=== PATIENT | female | born 1965 ===

== ENCOUNTER 2018-03-23 18:43 | Emergency (ER) | payer MEDICAID ==
[2018-03-23 19:16] VITALS: PULSE 89
--- NOTE | 2018-03-23 20:21 | ED PDOC ---
Arrival/HPI - General Historian: Patient EM Caveat: Language Barrier - History of Present Illness Time/Duration: > week Symptom Onset: Gradual Symptom Course: Worsening Quality: Aching, Pressure, Throbbing Severity Level: 7 Activities at Onset: Rest, Eating, Sleeping Context: Home <Eduarda Ndiaye - Last Filed: 03/23/18 22:12> <Kahlil Covington - Last Filed: 03/23/18 23:24> - General Chief Complaint: Dental Pain Time Seen by Provider: 03/23/18 20:14 - History of Present Illness Narrative History of Present Illness (Text): 03/23/18 20:14 Pt is a 52 yr old female with PMH of DMII, HTN and Migraine Headaches, who presents to the ED for dental pain s/p dental surgery that was done last month which began 3 days after the procedure. Reports pain that travels up the right side of the face as well as throat pain and swelling causing some difficulty swallowing. Also c/o headache, and left ear pain. Pt reports pain is worse at night along with chills but denies fever, nausea, vomiting, diarrhea, stiffness in the neck back pain. Pt states she can only take Percocet as oxycodone immediate release causes dizziness and Motrin irritates her GERD. Pt is a heavy smoker for many years but is trying to quit. (Eduarda Ndiaye) Past Medical History - Provider Review Nursing Documentation Reviewed: Yes - Travel History Have you recently traveled outside [place] w/in the past 3 mons?: No - Cardiac Hx Cardiac Disorders: Yes Hx Hypertension: Yes - Pulmonary Hx Respiratory Disorders: Yes Hx Asthma: Yes - Neurological Hx Neurological Disorder: Yes Hx Migraine: Yes - HEENT Hx HEENT Disorder: No - Renal Hx Renal Disorder: No - Endocrine/Metabolic Hx Endocrine Disorders: Yes Hx Diabetes Mellitus Type 2: Yes - Hematological/Oncological Hx Blood Disorders: No - Musculoskeletal/Rheumatological Hx Musculoskeletal Disorders: Yes Hx Arthritis: Yes Hx Back Pain: Yes - Gastrointestinal Hx Gastrointestinal Disorders: Yes Hx Gall Bladder Disease: Yes - Genitourinary/Gynecological Hx Genitourinary Disorders: No - Psychiatric Hx Psychophysiologic Disorder: Yes Hx Anxiety: Yes Hx Substance Use: No - Surgical History Hx Cholecystectomy: Yes <Eduarda Ndiaye - Last Filed: 03/23/18 22:12> - Past History Past History: Non-Contributing - Infectious Disease Hx of Infectious Diseases: None <Kahlil Covington - Last Filed: 03/23/18 23:24> Family/Social History - Physician Review Nursing Documentation Reviewed: Yes Family/Social History: Unknown Family HX Smoking Status: Heavy Smoker > 10 Cigarettes Daily Hx Alcohol Use: No Hx Substance Use: No <Eduarda Ndiaye - Last Filed: 03/23/18 22:12> Hx Substance Use Treatment: No <Kahlil Covington - Last Filed: 03/23/18 23:24> Allergies/Home Meds <Eduarda Ndiaye - Last Filed: 03/23/18 22:12> <Kahlil Covington - Last Filed: 03/23/18 23:24> Allergies/Adverse Reactions: Allergies No Known Allergies Allergy (Verified 03/23/18 19:08) Review of Systems - Review of Systems Systems not reviewed;Unavailable: Language Barrier (liberian only) Constitutional: Normal, Fevers Eyes: Normal. absent: Vision Changes ENT: Normal, Sore Throat. absent: Hearing Changes, Sinus Congestion Respiratory: Normal. absent: SOB Cardiovascular: Normal. absent: Chest Pain Gastrointestinal: Normal Genitourinary Female: Normal Musculoskeletal: Normal Skin: Normal Neurological: Normal, Headache. absent: Dizziness, Focal Weakness, Gait Changes Endocrine: Normal Hemo/Lymphatic: Normal Psychiatric: Normal <Eduarda Ndiaye - Last Filed: 03/23/18 22:12> Physical Exam Vital Signs Reviewed: Yes Temperature: Afebrile Blood Pressure: Normal Pulse: Regular Respiratory Rate: Normal Appearance: Positive for: Well-Appearing, Non-Toxic, Comfortable Pain Distress: Moderate Mental Status: Positive for: Alert and Oriented X 3 - Systems Exam Head: Present: Atraumatic, Normocephalic Pupils: Present: PERRL Extroacular Muscles: Present: EOMI Conjunctiva: Present: Normal Mouth: Present: Moist Mucous Membranes Pharnyx: Present: ERYTHEMA. No: EXUDATE, TONSILS ENLARGED, Peritonsilar Swelling, Uvular Deviation, Strider, Soft Palate/Uvular Edema Nose (External): Present: Atraumatic Nose (Internal): Present: Normal Inspection Neck: Present: Normal Range of Motion. No: Meningeal Signs, MIDLINE TENDERNESS , Lymphadenopathy Respiratory/Chest: Present: Clear to Auscultation, Good Air Exchange. No: Respiratory Distress, Accessory Muscle Use Cardiovascular: Present: Regular Rate and Rhythm, Normal S1, S2. No: Murmurs Abdomen: No: Tenderness, Distention, Peritoneal Signs Back: Present: Normal Inspection Upper Extremity: Present: Normal Inspection. No: Cyanosis, Edema Lower Extremity: Present: Normal Inspection. No: Edema Neurological: Present: GCS=15, CN II-XII Intact, Speech Normal Skin: Present: Warm, Dry, Normal Color. No: Rashes Lymphatic: Present: Cervical Adenopathy Psychiatric: Present: Alert, Oriented x 3, Normal Insight, Normal Concentration <Eduarda Ndiaye - Last Filed: 03/23/18 22:12> Vital Signs Temp Pulse Resp BP Pulse Ox 03/23/18 19:09 98.9 F 89 16 111/78 98 Medical Decision Making - Lab Interpretations I have reviewed the lab results: Yes (FS 166) <Eduarda Ndiaye - Last Filed: 03/23/18 22:12> Re-evaluation Time: 23:09 Reassessment Condition: Improving,but remains with symptoms - RAD Interpretation Grit Removal Operator: Radiologist <Kahlil Covington - Last Filed: 03/23/18 23:24> ED Course and Treatment: 03/23/18 20:21 Impression Pt is a 52 yr old female who presents to the ED for dental pain s/p dental surgery that was done last month which began 3 days after the procedure. On exam, there are numerous extraction of canine and molar with sutures in place along with purulent matter. Posterior pharynx erythematous and mallampati score of 2. Cervical LAD tenderness especially on the right side. Working Dx: Dental abscess, facial cellulits, Ludwigs angina, Plan maxillofacial CT Clindamycin percocet lidocaine viscous swish and spit 03/23/18 21:16 Progress note Case endorsed to Dr Covington at 21:20 (Eduarda Ndiaye) I performed the hx and physical exam of the patient and discussed their mgt with the PA. I reviewed the PA's NOTE and agree with the assessment and plan of care. pt is doing well currently NO soft tissue tenderness noted on exam no drooling/stridor, no dysphonia noted poor dentitions noted, with gingival disease is noted, no lesions/masses/ bleeding is noted no fetid odor is noted pt is able to swallow with ease pt is currently awaiting CT results 03/23/18 23:19 pt is doing well pt is made aware of her medical results pt is encouraged SMOKING cessation pt will follow up as directed pt will be discharged home (Kahlil Covington) - RAD Interpretation Narrative RAD Interpretations (Text): 03/23/18 23:[address] maxillofacial: COMPARISON: No relevant prior studies available. FINDINGS: Bones/joints: No acute fracture. Soft tissues: Unremarkable. Orbits: Unremarkable. Sinuses: There is mucoperiosteal thickening of the right maxillary sinus. No air -fluid levels. IMPRESSION: No acute findings. Thank you for allowing us to participate in the care of your patient. Dictated and Authenticated by: Lexi Rosado MD (Kahlil Covington) Radiology Orders: 03/23/18 20:24 MAXILLOFACIAL W/O CONTRAST [CT] Stat - Medication Orders Current Medication Orders: Discontinued Medications Clindamycin Phosphate (Cleocin) 300 mg IM STAT STA PRN Reason: Protocol Stop: 03/23/18 20:37 Last Admin: 03/23/18 22:52 Dose: 300 mg IM Administration Charges Document 03/23/18 22:52 EQ (Rec: 03/23/18 22:52 EQ [facility]) Injection Site MAR Injection Site Left Deltoid Charges for Administration # of IM Administrations 1 Lidocaine HCl (Lidocaine 2% Viscous) 15 ml MM STAT STA Stop: 03/23/18 20:26 Last Admin: 03/23/18 20:41 Dose: 15 ml Oxycodone/Acetaminophen (Percocet 5/325 Mg Tab) 1 tab PO STAT STA Stop: 03/23/18 20:26 Last Admin: 03/23/18 20:41 Dose: 1 tab MAR Pain Assessment Document 03/23/18 20:41 EQ (Rec: 03/23/18 20:42 EQ [facility]) Pain Reassessment Is this a pain reassessment? No Sleep Is patient sleeping during reassessment? No Presence of Pain Presence of Pain Yes Disposition/Present on Arrival - Present on Arrival Any Indicators Present on Arrival: Yes History of DVT/PE: No History of Uncontrolled Diabetes: Yes Urinary Catheter: No History of Decub. Ulcer: No History Surgical Site Infection Following: None - Disposition Have Diagnosis and Disposition been Completed?: Yes <Eduarda Ndiaye - Last Filed: 03/23/18 22:12> - Disposition Disposition Time: 23:14 Patient Plan: Discharge <Kahlil Covington - Last Filed: 03/23/18 23:24> - Disposition Diagnosis: Dental abscess, Dentalgia, Sore throat, Gum disease Disposition: HOME/ ROUTINE Patient Problems: Current Active Problems Problem Status Onset Dental abscess Acute Dentalgia Acute Gum disease Acute Sore throat Acute Condition: STABLE Discharge Instructions (ExitCare): Dental Pain (DC), Sore Throat in Adults, Tooth Abscess (DC), Gingivitis (DC) Print Language: SOUTH SUDANESE Additional Instructions: Make sure to see your doctor in 1-2 days DRINK PLENTY OF FLUIDS take your medications as prescribed RETURN TO ED IF worse pain, cant breath, persistent vomiting, high fever >101- 102 for hours, altered behavior, slurr speech, facial changes, focal weakness ( arm/leg or both), unable to urinate, heavy/persistent bleeding, passing out, chest pain, or other medical emergencies STOP SMOKING follow up with dental clinic: The Department of Dental Medicine treats all age groups from through geriatrics. Hours of Operation Sunday - Sunday 8:00 AM - 5:00 PM Location [facility] [address] [id number] ANALI ELLIOTT, thank you for letting us take care of you today. Your provider was Kahlil Covington MD and JOSE A Ndiaye and you were treated for DENTAL PAIN and INFECTION. The emergency medical care you received today was directed at your acute symptoms. If you were prescribed any medication, please fill it and take as directed. It may take several days for your symptoms to resolve. Return to the Emergency Department if your symptoms worsen, do not improve, or if you have any other problems. Recommended dental clinic for further care of your dental pain: Dental Clinic The Department of Dental Medicine provides dental care in the [facility] at the Dental Clinic. The Dental Clinic has three divisions: tool grinder operator external, Hospital Dentistry and Pediatric Dentistry. The Department of Dental Medicine treats all age groups from through geriatrics. Hours of Operation Sunday - Sunday 8:00 AM - 5:00 PM Location [facility] [address] [place] [address] Recognized Standards or Practice Guidelines [facility] Board of Dentistry Please contact your doctor or call one of the physicians/clinics you have been referred to that are listed on the Patient Visit Information form that is included in your discharge packet. Bring any paperwork you were given at discharge with you along with any medications you are taking to your follow up visit. Our treatment cannot replace ongoing medical care by a primary care provider outside of the emergency department. Thank you for allowing the [facility] team to be part of your care today. If you had an X-Ray or CT scan: A Radiologist will review the ED reading if any change in treatment is needed we will contact you. Prescriptions: Clindamycin [Cleocin] 300 mg PO QID 10 Days #40 cap Ibuprofen [Motrin] 600 mg PO QID PRN #30 tab PRN Reason: Pain, Mild (1-3) Lidocaine 2% Viscous 10 ml MM TID PRN #100 ml PRN Reason: Other oxyCODONE/Acetaminophen [Percocet 5/325 mg Tab] 1 ea PO TID PRN #8 tab PRN Reason: Pain, Moderate (4-7) Referrals: [facility] [place] [Outside] - Follow up with primary [facility] [Outside] - Follow up with primary [facility] [Outside] - Follow up with primary Forms: [facility] (Somali), WORK NOTE
[2018-03-23] MEDS ORDERED: Oxycodone/Acetaminophen 5/325 mg Tab PO STA (20:25)
[2018-03-23] MEDS ORDERED: Clindamycin 150 mg/mL Inj IM STA (20:36)
[2018-03-23 23:41] VITALS: BP 112/76; RESP 18; TEMP 98.6; O2SAT 99
--- NOTE | 2018-03-24 12:13 | CT ---
PROCEDURE: CT MAXILLOFACIAL BONES WITHOUT CONTRAST HISTORY: dental pain COMPARISON: None TECHNIQUE: Contiguous axial CT images of the maxillofacial bones were obtained. Coronal and sagittal reformats were generated. Radiation dose: Total exam DLP = 783.50 mGy-cm. This CT exam was performed using one or more of the following dose reduction techniques: Automated exposure control, adjustment of the mA and/or kV according to patient size, and/or use of iterative reconstruction technique. FINDINGS: NASAL BONES: Unremarkable. ORBITS: Unremarkable. PARANASAL SINUSES/ MASTOIDS: Minor mucosal thickening seen in the maxillary antra right greater than left. MAXILLA: Unremarkable. MANDIBLE/ TEMPOROMANDIBULAR JOINTS: Unremarkable. SKULL BASE: Unremarkable. TEMPORAL BONES: Middle ears and mastoid grossly unremarkable. OTHER FINDINGS: There are multiple missing maxillary teeth and several missing or mandibular teeth as well. Poor dentition in many of the remaining teeth with caries and radicular cystic changes. No evidence to suggest discrete abscess or osteomyelitis of the maxilla or mandible. Recommend dental consultation Suspect minor chronic periventricular white matter ischemic changes. IMPRESSION: There are multiple missing maxillary teeth and several missing or mandibular teeth as well. Poor dentition in many of the remaining teeth with caries and radicular cystic changes. No evidence to suggest discrete abscess or osteomyelitis of the maxilla or mandible. Recommend dental consultation. Minor mucosal thickening seen within both maxillary antra.
== END 2018-03-23 23:40 | disposition home or self-care (01) ==
LOC: ED 18:43 → MERGE 18:43 → ED 23:40
DX: K04.7 Periapical abscess without sinus (principal); J02.9 Acute pharyngitis, unspecified; K06.9 Disorder of gingiva and edentulous alveolar ridge, unspecified; I10 Essential (primary) hypertension; E11.9 Type 2 diabetes mellitus without complications; F17.210 Nicotine dependence, cigarettes, uncomplicated

== ENCOUNTER 2018-06-11 11:31 | Emergency (ER) | payer MEDICAID ==
[2018-06-11 11:59] VITALS: BMI 31.8
[2018-06-11 12:11] VITALS: PULSE 92
--- NOTE | 2018-06-11 13:07 | ED PDOC ---
Arrival/HPI - General Historian: Patient - History of Present Illness Time/Duration: > month Symptom Onset: Gradual Symptom Course: Worsening Quality: Fullness Severity Level: Moderate - General Chief Complaint: Back Pain Time Seen by Provider: 06/11/18 12:14 - History of Present Illness Narrative History of Present Illness (Text): 06/11/18 13:03 52 year old female, past medical history of diabetes, arthritis, neuropathy, presents to the ED with left knee pain and swelling for the past 1 month. Disc Inspector was used for translation as patient is only tajik speaking. Patient states that her arthritis has worsened and she is having severe back pain with radiation down both legs. She states her left knee is painful and swollen for the past 1 month and she has difficulty with ambulation. She saw her PMD last month and they wrote prescriptions for knee x-ray that she has not done yet. Patient has been taking Tramadol for pain with no relief of symptoms. Denies fever, chills, nausea, vomiting, shortness of breath, chest pain, vision or hearing changes, abdominal pain, or urinary symptoms. Disc Inspector: Kendal [id number] (Torres Tapia) Past Medical History - Provider Review Nursing Documentation Reviewed: Yes - Past History Past History: Non-Contributing - Infectious Disease Hx of Infectious Diseases: None - Cardiac Hx Cardiac Disorders: Yes Hx Hypertension: Yes - Pulmonary Hx Respiratory Disorders: Yes Hx Asthma: Yes - Neurological Hx Neurological Disorder: Yes Hx Migraine: Yes - HEENT Hx HEENT Disorder: No - Renal Hx Renal Disorder: No - Endocrine/Metabolic Hx Endocrine Disorders: Yes Hx Diabetes Mellitus Type 2: Yes - Hematological/Oncological Hx Blood Disorders: No - Musculoskeletal/Rheumatological Hx Musculoskeletal Disorders: Yes Hx Arthritis: Yes Hx Back Pain: Yes Hx Unsteady Gait: Yes - Gastrointestinal Hx Gastrointestinal Disorders: Yes Hx Gall Bladder Disease: Yes - Genitourinary/Gynecological Hx Genitourinary Disorders: No - Psychiatric Hx Psychophysiologic Disorder: Yes Hx Anxiety: Yes Hx Substance Use: No - Surgical History Hx Cholecystectomy: Yes - Anesthesia Hx Anesthesia: No Family/Social History - Physician Review Nursing Documentation Reviewed: Yes Family/Social History: Unknown Family HX Smoking Status: Current Some Days Smoker Hx Alcohol Use: No Hx Substance Use: No Hx Substance Use Treatment: No Allergies/Home Meds Allergies/Adverse Reactions: Allergies Penicillins Allergy (Verified 06/11/18 11:58) RASH Home Medications: Home Meds Medication Instructions Recorded Confirmed MetFORMIN 850 mg PO BID 06/17/17 06/11/18 Diclofenac [Diclofenac] 75 mg PO DAILY 06/11/18 06/11/18 Gabapentin [Neurontin] 800 mg PO DAILY 06/11/18 06/11/18 GlipiZIDE [Glucotrol] 5 mg PO DAILY 06/11/18 06/11/18 Montelukast [Singulair] 10 mg PO DAILY 06/11/18 06/11/18 Sertraline [Zoloft] 25 mg PO BID 06/11/18 06/11/18 Sertraline [Zoloft] 100 mg PO DAILY 06/11/18 06/11/18 Zolpidem Tartrate [Ambien] 10 mg PO HS 06/11/18 06/11/18 clonazePAM [Klonopin] 1 mg PO TID 06/11/18 06/11/18 Review of Systems - Review of Systems Constitutional: absent: Fevers Eyes: absent: Vision Changes ENT: absent: Hearing Changes Respiratory: absent: SOB, Cough Cardiovascular: absent: Chest Pain, Palpitations Gastrointestinal: absent: Abdominal Pain, Nausea, Vomiting Genitourinary Female: absent: Dysuria, Hematuria Musculoskeletal: Arthralgias, Back Pain, Neck Pain, Joint Swelling Skin: absent: Rash, Pruritis, Skin Lesions, Cellulitis Neurological: absent: Headache, Dizziness Endocrine: absent: Diaphoresis Physical Exam Vital Signs Reviewed: Yes Temperature: Afebrile Blood Pressure: Normal Pulse: Tachycardic Respiratory Rate: Normal Appearance: Positive for: Well-Appearing, Uncomfortable Pain Distress: Moderate Mental Status: Positive for: Alert and Oriented X 3 - Systems Exam Head: Present: Atraumatic, Normocephalic Pupils: Present: PERRL Extroacular Muscles: Present: EOMI Mouth: Present: Dry Respiratory/Chest: Present: Clear to Auscultation, Good Air Exchange. No: Respiratory Distress, Accessory Muscle Use Cardiovascular: Present: Regular Rate and Rhythm, Normal S1, S2. No: Murmurs Abdomen: No: Tenderness, Distention, Peritoneal Signs Back: Present: Paraspinal Tenderness Upper Extremity: Present: NORMAL PULSES. No: Tenderness, Swelling Lower Extremity: Present: NORMAL PULSES, Other (Left knee swelling, decreased range of motion, and tenderness to palpation) Skin: Present: Warm, Dry Psychiatric: Present: Alert, Oriented x 3 Vital Signs Temp Pulse Resp BP Pulse Ox 06/11/18 16:43 97.9 F 18 124/86 98 06/11/18 12:10 98.1 F 92 H 17 118/76 99 Medical Decision Making ED Course and Treatment: Patient Seen With Resident: In agreement with resident note. Patient was seen and evaluated with resident, came up with plan and treatment together. (Lito Wells) 06/11/18 13:16 52F, presents to ED with worsening left knee pain and swelling. CBC BMP Uric Acid ESR CRP Knee X-ray 06/11/18 16:22 Labs within normal limits. Knee x-ray shows no signs of effusion and is unremarkable. Patient received pain medication. 06/11/18 16:57 Patient pain has improved. Patient will be discharged. Tylenol or ibuprofen for pain. Patient to follow up with PMD within 3-5 days. If symptoms worsen, please return to ED. Patient verbalized agreement and understanding of plan. EMT was used to translate during encounter. Case reviewed and discussed with attending provider. (Torres Tapia) - Lab Interpretations Lab Results: 06/11/18 13:52 06/11/18 13:52 Lab Results 06/11/18 14:06: POC Glucose (mg/dL) 138 H 06/11/18 13:52: WBC 9.5, RBC 4.35, Hgb 13.2, Hct 39.0, MCV 89.7, MCH 30.3, MCHC 33.8, RDW 13.7, Plt Count 261, MPV 10.7, Gran % 53.0, Lymph % (Auto) 38.9 H, Bath % (Auto) 6.3 H, Eos % (Auto) 1.5, Baso % (Auto) 0.3, Gran # 5.02, Lymph # ( Auto) 3.7 H, Bath # (Auto) 0.6, Eos # (Auto) 0.1, Baso # (Auto) 0.03, ESR 25 H 06/11/18 13:52: Sodium 139, Potassium 4.3, Chloride 102, Carbon Dioxide 26, Anion Gap 15, BUN 9, Creatinine 0.5 L, Est GFR ( Amer) > 60, Est GFR (Non -Af Amer) > 60, Random Glucose 128 H, Uric Acid 4.4, Calcium 9.5, C-Reactive Protein Pending - RAD Interpretation Radiology Orders: 06/11/18 13:07 KNEE LEFT 2 VIEWS (AP & LAT) [RAD] Stat - Medication Orders Current Medication Orders: Discontinued Medications Oxycodone/Acetaminophen (Percocet 5/325 Mg Tab) 2 tab PO STAT STA Stop: 06/11/18 13:49 Last Admin: 06/11/18 14:01 Dose: 2 tab MAR Pain Assessment Document 06/11/18 14:01 SUDOJ (Rec: 06/11/18 14:04 SUDOJ [facility]) Pain Reassessment Is this a pain reassessment? No Presence of Pain Presence of Pain Yes Location Left, Right or Bilateral Bilateral Pain Location Body Site Knee Description Description Sharp Intensity of Pain at present 9 Acceptable Level of Pain 0 Pain Behavior Moaning Crying Guarding Irritability Aggravating Factors Walking Alleviating Factors/Management Medication Techniques Alleviating Factors Medication Disposition/Present on Arrival - Present on Arrival Any Indicators Present on Arrival: No History of DVT/PE: No History of Uncontrolled Diabetes: Yes Urinary Catheter: No History of Decub. Ulcer: No History Surgical Site Infection Following: None - Disposition Have Diagnosis and Disposition been Completed?: Yes Disposition Time: 16:23 Patient Plan: Discharge - Disposition Diagnosis: Arthritis Disposition: HOME/ ROUTINE Condition: GOOD Discharge Instructions (ExitCare): Osteoarthritis (DC) Additional Instructions: Please follow up with your primary medical doctor within 3-5 days. Referrals: Carlos Carpenter MD [Primary Care Provider] - Follow up with primary Forms: [employer] (Greenlandic)
[2018-06-11] MEDS ORDERED: Oxycodone/Acetaminophen 5/325 mg Tab PO STA (13:48)
[2018-06-11 14:13] LABS: BASO # 0.03 K/mm3 (0.0-2.0); BASO % 0.3 % (0.0-3.0); EOS # 0.1 (0.0-0.7); EOS % 1.5 % (1.5-5.0); GRAN # 5.02 (1.4-6.5); HEMOGLOBIN 13.2 g/dL (12.0-16.0); LYMPH # 3.7 (1.2-3.4); LYMPH % 38.9 % (22.0-35.0); MEAN CELL VOLUME 89.7 fl (80.0-105.0); MEAN CORPUSCULAR HEMOGLOBIN 30.3 pg (25.0-35.0); MEAN CORPUSCULAR HGB CONC 33.8 g/dl (31.0-37.0); MEAN PLATELET VOLUME 10.7 fl (7.0-11.0); MONO # 0.6 (0.1-0.6); MONO % 6.3 % (1.0-6.0); RBC 4.35 10^6/uL (3.5-6.1); RED CELL DISTRIBUTION WIDTH 13.7 % (11.5-14.5); WHITE BLOOD COUNT 9.5 10^3/ul (4.5-11.0)
[2018-06-11 14:21] LABS: BLOOD UREA NITROGEN 9 mg/dL (7-21); CALCIUM 9.5 mg/dL (8.4-10.5); GFR NON-AFRICAN AMERICAN > 60; URIC ACID 4.4 mg/dL (2.5-6.2)
--- NOTE | 2018-06-11 14:24 | RAD ---
Date of service: 06/11/2018 PROCEDURE: Left Knee Radiographs. HISTORY: Pain. COMPARISON: None. FINDINGS: BONES: Normal. No fracture. JOINTS: Normal. No osteoarthritis. JOINT EFFUSION: None. OTHER FINDINGS: None. IMPRESSION: No acute findings
[2018-06-11 16:48] VITALS: BP 124/86; RESP 18; TEMP 97.9; O2SAT 98
== END 2018-06-11 16:49 | disposition home or self-care (01) ==
LOC: ED 11:31
DX: M19.90 Unspecified osteoarthritis, unspecified site (principal); I10 Essential (primary) hypertension; E11.9 Type 2 diabetes mellitus without complications

== ENCOUNTER 2018-12-24 13:46 | Emergency (ER) | payer MEDICAID ==
[2018-12-24 14:28] VITALS: BMI 29.2
[2018-12-24] MEDS ORDERED: DiphenhydrAMINE 50 mg/ml Inj IVP STA (15:06)
[2018-12-24] MEDS ORDERED: Sodium Chloride 0.9% 1,000 ML IV STA (15:08)
--- NOTE | 2018-12-24 15:17 | ED PDOC ---
Arrival/HPI - General Chief Complaint: Allergic Reaction Time Seen by Provider: 12/24/18 13:50 Historian: Patient - History of Present Illness Narrative History of Present Illness (Text): 12/24/18 15:47 53 year old female, with a past medical history of HDL, diabetes, arthritis and neuropathy, who presents to the emergency department complaining of abdominal pain. Patient reports she was put on cholestyramine for HDL, and soon after began having rashes all over her body. She reports she went to [facility] on October 15 for evaluation, where blood tests were done and she was found to be normal. She denies any fever, chills, vomiting, nausea, diarrhea, chest pain, or any other complaints. Time/Duration: 24 hours Symptom Onset: Gradual Symptom Course: Unchanged Activities at Onset: Light Context: Home Past Medical History - Provider Review Nursing Documentation Reviewed: Yes - Past History Past History: Non-Contributing - Infectious Disease Hx of Infectious Diseases: None - Reproductive Menopause: Yes - Cardiac Hx Cardiac Disorders: Yes Hx Hypertension: Yes - Pulmonary Hx Respiratory Disorders: Yes Hx Asthma: Yes - Neurological Hx Neurological Disorder: Yes Hx Migraine: Yes - HEENT Hx HEENT Disorder: No - Renal Hx Renal Disorder: No - Endocrine/Metabolic Hx Endocrine Disorders: Yes Hx Diabetes Mellitus Type 2: Yes - Hematological/Oncological Hx Blood Disorders: No - Musculoskeletal/Rheumatological Hx Musculoskeletal Disorders: Yes Hx Arthritis: Yes Hx Back Pain: Yes Hx Unsteady Gait: Yes - Gastrointestinal Hx Gastrointestinal Disorders: Yes Hx Gall Bladder Disease: Yes - Genitourinary/Gynecological Hx Genitourinary Disorders: No - Psychiatric Hx Psychophysiologic Disorder: Yes Hx Anxiety: Yes Hx Depression: Yes Hx Substance Use: No - Surgical History Hx Cholecystectomy: Yes - Anesthesia Hx Anesthesia: No Hx Anesthesia Reactions: No Hx Malignant Hyperthermia: No Family/Social History - Physician Review Nursing Documentation Reviewed: Yes Family/Social History: Unknown Family HX Smoking Status: Current Some Days Smoker Hx Alcohol Use: No Hx Substance Use: No Hx Substance Use Treatment: No Allergies/Home Meds Allergies/Adverse Reactions: Allergies Penicillins Allergy (Verified 06/11/18 11:58) RASH Home Medications: Home Meds Medication Instructions Recorded Confirmed MetFORMIN 850 mg PO BID 06/17/17 06/11/18 Diclofenac 75 mg PO DAILY 06/11/18 06/11/18 Gabapentin [Neurontin] 800 mg PO DAILY 06/11/18 06/11/18 GlipiZIDE [Glucotrol] 5 mg PO DAILY 06/11/18 06/11/18 Montelukast [Singulair] 10 mg PO DAILY 06/11/18 06/11/18 Sertraline [Zoloft] 25 mg PO BID 06/11/18 06/11/18 Sertraline [Zoloft] 100 mg PO DAILY 06/11/18 06/11/18 Zolpidem Tartrate [Ambien] 10 mg PO HS 06/11/18 06/11/18 clonazePAM [Klonopin] 1 mg PO TID 06/11/18 06/11/18 Review of Systems - Physician Review All systems were reviewed & negative as marked: Yes - Review of Systems Constitutional: absent: Fevers Respiratory: absent: SOB, Cough Cardiovascular: absent: Chest Pain Gastrointestinal: Abdominal Pain. absent: Nausea, Vomiting Neurological: absent: Headache, Dizziness Endocrine: absent: Diaphoresis Physical Exam Vital Signs Reviewed: Yes Temperature: Afebrile Blood Pressure: Normal Pulse: Regular Respiratory Rate: Normal Appearance: Positive for: Well-Appearing, Non-Toxic, Comfortable, Unkept Pain Distress: None Mental Status: Positive for: Alert and Oriented X 3 - Systems Exam Head: Present: Atraumatic, Normocephalic Pupils: Present: PERRL Extroacular Muscles: Present: EOMI Conjunctiva: Present: Normal Mouth: Present: Moist Mucous Membranes Neck: Present: Normal Range of Motion Respiratory/Chest: Present: Clear to Auscultation, Good Air Exchange. No: Respiratory Distress, Accessory Muscle Use, Wheezes, Rales, Rhonchi Cardiovascular: Present: Regular Rate and Rhythm, Normal S1, S2. No: Murmurs Abdomen: Present: Distention. No: Tenderness, Peritoneal Signs Back: Present: Normal Inspection, Other (blanching uriticarial lesions to the the back) Upper Extremity: Present: Normal Inspection, Other (old excoriation to upper extremities bilaterally ). No: Cyanosis, Edema Lower Extremity: Present: Normal Inspection. No: Edema Neurological: Present: GCS=15, Speech Normal Skin: Present: Warm, Dry, Normal Color. No: Rashes Psychiatric: Present: Alert, Oriented x 3, Normal Insight, Normal Concentration, Anxious Medical Decision Making ED Course and Treatment: 03/26/19 15:01 Impression: Differential Diagnosis included but are not limited to: Plan: -- Xanax -- Benadryl -- Pepcid -- IV Fluids -- SOLU-Medrol -- Reassess and disposition Prior Visits: Notes and results from previous visits were reviewed. Progress Notes: - Scribe Statement The provider has reviewed the documentation as recorded by the Scribe Marimarruthie Hendricks Provider Scribe Attestation: All medical record entries made by the Scribe were at my direction and personally dictated by me. I have reviewed the chart and agree that the record accurately reflects my personal performance of the history, physical exam, medical decision making, and the department course for this patient. I have also personally directed, reviewed, and agree with the discharge instructions and disposition. Disposition/Present on Arrival - Present on Arrival Any Indicators Present on Arrival: Yes History of DVT/PE: No History of Uncontrolled Diabetes: Yes Urinary Catheter: No History of Decub. Ulcer: No History Surgical Site Infection Following: None - Disposition Have Diagnosis and Disposition been Completed?: Yes Diagnosis: Allergic reaction caused by a drug Disposition: HOME/ ROUTINE Disposition Time: 17:32 Patient Plan: Discharge Patient Problems: Current Active Problems Problem Status Onset Allergic reaction caused by a drug Acute Condition: STABLE Discharge Instructions (ExitCare): Adverse Drug Reactions, Adult (DC) Print Language: MONEGASQUE Additional Instructions: All medical record entries made by the Scribe were at my direction and personally dictated by me. I have reviewed the chart and agree that the record accurately reflects my personal performance of the history, physical exam, medical decision making, and the department course for this patient. I have also personally directed, reviewed, and agree with the discharge instructions and disposition. Please STOP taking the chlorestyramine medication Please follow up with your PCP in 1 week Take medications as prescribed. Prescriptions: Calamine/Zinc Oxide [Calamine Lotion] 120 ml EXT Q4H #1 bottle DiphenhydrAMINE [Benadryl] 25 mg PO Q6H #10 cap Famotidine [Pepcid] 40 mg PO Q6H #10 tablet Methylprednisolone [Medrol Dose Pack (21 tabs)] 4 mg PO DAILY #21 mg Referrals: Pricilla Simpson MD [Medical Doctor] - Follow up with primary [facility] [Outside] - Follow up with primary Forms: [employer] (U[place]ayan)
[2018-12-24 17:59] VITALS: PULSE 83; RESP 17; TEMP 98.7; O2SAT 97
[2018-12-24 18:02] VITALS: BP 103/64
== END 2018-12-24 23:13 | disposition home or self-care (01) ==
LOC: ED 13:46
DX: L27.0 Generalized skin eruption due to drugs and medicaments taken internally (principal); T46.6X5A Adverse effect of antihyperlipidemic and antiarteriosclerotic drugs, initial encounter; I10 Essential (primary) hypertension; E11.40 Type 2 diabetes mellitus with diabetic neuropathy, unspecified; M19.90 Unspecified osteoarthritis, unspecified site
CPT/HCPCS: 96361; 96374; 96375; 99283; J1200; J2930; J7030

== ENCOUNTER 2019-01-07 17:25 | Emergency (ER) | payer MEDICAID ==
[2019-01-07 17:26] VITALS: BMI 29.2
[2019-01-07 18:04] VITALS: TEMP 98
[2019-01-07] MEDS ORDERED: Sodium Chloride 0.9% 1,000 ML IV STA (18:34)
[2019-01-07] MEDS ORDERED: DiphenhydrAMINE 50 mg/ml Inj IVP STA (18:35)
[2019-01-07 19:12] LABS: BASO # 0.04 K/mm3 (0.0-2.0); BASO % 0.4 % (0.0-3.0); EOS # 0.1 (0.0-0.7); EOS % 1.4 % (1.5-5.0); HEMOGLOBIN 14.9 g/dL (12.0-16.0); LYMPH % 32.2 % (22.0-35.0); MEAN CELL VOLUME 92.6 fl (80.0-105.0); MEAN CORPUSCULAR HEMOGLOBIN 31.3 pg (25.0-35.0); MEAN CORPUSCULAR HGB CONC 33.8 g/dl (31.0-37.0); MEAN PLATELET VOLUME 10.6 fl (7.0-11.0); MONO # 0.5 (0.1-0.6); MONO % 4.8 % (1.0-6.0); RBC 4.76 10^6/uL (3.5-6.1); RED CELL DISTRIBUTION WIDTH 12.9 % (11.5-14.5); WHITE BLOOD COUNT 9.3 10^3/uL (4.5-11.0)
[2019-01-07 19:13] LABS: URINE BILIRUBIN NEGATIVE (NEGATIVE); URINE BLOOD NEGATIVE (NEGATIVE); URINE GLUCOSE (UA) NEGATIVE (NEGATIVE); URINE LEUKOCYTE ESTERASE NEGATIVE Leu/uL (NEGATIVE); URINE PROTEIN NEGATIVE mg/dL (<30 mg/dL); URINE UROBILINOGEN 0.2 E.U./dL (<1 E.U./dL)
[2019-01-07 19:17] LABS: URINE APPEARANCE CLEAR (CLEAR); URINE COLOR STRAW (YELLOW)
[2019-01-07 19:20] LABS: ALB/GLOB RATIO 1.2 (1.1-1.8); ALBUMIN 4.6 g/dL (3.0-4.8); ALT/SGPT 89 U/L (7-56); AST/SGOT 32 U/L (14-36); BLOOD UREA NITROGEN 10 mg/dL (7-21); CALCIUM 10.2 mg/dL (8.4-10.5); GFR NON-AFRICAN AMERICAN > 60
[2019-01-07 19:21] LABS: INR 0.91; PARTIAL THROMBOPLASTIN TIME 33.7 Seconds (26.9-38.3); PROTHROMBIN TIME 10.1 SECONDS (9.4-12.5)
--- NOTE | 2019-01-07 19:22 | ED PDOC ---
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 Headache is throbbing and located to the occipital region. Chest pain is throbbing and left sided. Also c/o constant periumbilical abdominal pain and mass. Associated intermittent nausea, lightheadedness, diarrhea. She states she sometimes feels this way when she is under increased stress. She ran out of glucose test strips a few days ago and is worried her sugar may be elevated. Tolerating PO per baseline. Admits to taking her medications as prescribed, last this morning. Denies fever, chills, cough, congestion, vision changes, vomiting, palpitations, diaphoresis, urinary symptoms, or any other associated symptoms. Past Medical History - Provider Review Nursing Documentation Reviewed: Yes - Past History Past History: Non-Contributing - Infectious Disease Hx of Infectious Diseases: None - Cardiac Hx Cardiac Disorders: Yes Hx Hypertension: Yes - Pulmonary Hx Respiratory Disorders: Yes Hx Asthma: Yes - Neurological Hx Neurological Disorder: Yes Hx Migraine: Yes - HEENT Hx HEENT Disorder: No - Renal Hx Renal Disorder: No - Endocrine/Metabolic Hx Endocrine Disorders: Yes Hx Diabetes Mellitus Type 2: Yes - Hematological/Oncological Hx Blood Disorders: No - Integumentary Hx Dermatological Disorder: No - Musculoskeletal/Rheumatological Hx Musculoskeletal Disorders: Yes Hx Arthritis: Yes Hx Back Pain: Yes Hx Unsteady Gait: Yes - Gastrointestinal Hx Gastrointestinal Disorders: Yes Hx Gall Bladder Disease: Yes - Genitourinary/Gynecological Hx Genitourinary Disorders: No - Psychiatric Hx Psychophysiologic Disorder: Yes Hx Anxiety: Yes Hx Depression: Yes Hx Substance Use: No - Surgical History Hx Cholecystectomy: Yes - Anesthesia Hx Anesthesia: No Hx Anesthesia Reactions: No Hx Malignant Hyperthermia: No Family/Social History - Physician Review Nursing Documentation Reviewed: Yes Family/Social History: No Known Family HX Smoking Status: Current Some Days Smoker Hx Alcohol Use: No Hx Substance Use: No Hx Substance Use Treatment: No Allergies/Home Meds Allergies/Adverse Reactions: Allergies cholestyramine Allergy (Verified 01/07/19 18:07) RASH Penicillins Allergy (Verified 06/11/18 11:58) RASH Home Medications: Home Meds Medication Instructions Recorded Confirmed MetFORMIN 850 mg PO BID 06/17/17 06/11/18 Diclofenac 75 mg PO DAILY 06/11/18 06/11/18 Gabapentin [Neurontin] 800 mg PO DAILY 06/11/18 06/11/18 GlipiZIDE [Glucotrol] 5 mg PO DAILY 06/11/18 06/11/18 Montelukast [Singulair] 10 mg PO DAILY 06/11/18 06/11/18 Sertraline [Zoloft] 25 mg PO BID 06/11/18 06/11/18 Sertraline [Zoloft] 100 mg PO DAILY 06/11/18 06/11/18 Zolpidem Tartrate [Ambien] 10 mg PO HS 06/11/18 06/11/18 clonazePAM [Klonopin] 1 mg PO TID 06/11/18 06/11/18 Review of Systems - Review of Systems Constitutional: Normal. absent: Fatigue, Fevers Eyes: absent: Vision Changes ENT: Normal. absent: Sore Throat, Sinus Congestion Respiratory: Normal. absent: SOB, Cough Cardiovascular: Chest Pain. absent: Palpitations, Syncope Gastrointestinal: Abdominal Pain, Diarrhea, Nausea. absent: Vomiting, Appetite Changes Genitourinary Female: Normal. absent: Dysuria, Frequency Musculoskeletal: Normal. absent: Back Pain, Neck Pain Skin: Normal. absent: Rash Neurological: Headache. absent: Dizziness, Focal Weakness, Disequilibrium Physical Exam Vital Signs Reviewed: Yes Vital Signs Temp Pulse Resp BP Pulse Ox 01/07/19 18:00 98 F 86 19 118/83 99 Temperature: Afebrile Blood Pressure: Normal Pulse: Regular Respiratory Rate: Normal Appearance: Positive for: Well-Appearing, Non-Toxic, Comfortable Pain Distress: None Mental Status: Positive for: Alert and Oriented X 3 - Systems Exam Head: Present: Atraumatic, Normocephalic Pupils: Present: PERRL Extroacular Muscles: Present: EOMI Conjunctiva: Present: Normal Mouth: Present: Moist Mucous Membranes Neck: Present: Normal Range of Motion. No: Meningeal Signs Respiratory/Chest: Present: Clear to Auscultation, Good Air Exchange. No: Respiratory Distress, Accessory Muscle Use Cardiovascular: Present: Regular Rate and Rhythm, Normal S1, S2, Peripheal Pulses Present Abdomen: Present: Tenderness (generalized, worst periumbilical), Normal Bowel Sounds. No: Distention, Peritoneal Signs, Rebound, Guarding Back: Present: Normal Inspection. No: CVA Tenderness Upper Extremity: Present: Normal Inspection, Normal ROM, NORMAL PULSES, Neurovascularly Intact, Capillary Refill < 2s. No: Cyanosis, Edema, Temperature Abnormalties Lower Extremity: Present: Normal Inspection, Normal ROM, Neurovascularly Intact, Capillary Refill < 2 s. No: Edema, Temperature Abnormalties Neurological: Present: GCS=15, CN II-XII Intact, Speech Normal, Motor Func Grossly Intact, Normal Sensory Function, Gait Normal Skin: Present: Warm, Dry, Normal Color. No: Rashes Psychiatric: Present: Alert, Oriented x 3, Normal Insight, Normal Concentration, Normal Affect, Normal Mood Medical Decision Making ED Course and Treatment: 01/07/19 19:23 Initial Plan: * CBC, CMP * Coags * Lipase * Cardiac Iso * CXR * Head CT * Abd/Pelvis CT with IV contrast * IVF * Zofran * Toradol * Benadryl EKG shows NSR at 79, Normal intervals, No STEMI or other signs of acute ischemia 01/07/19 19:54 Bloodwork reviewed. LFTs slightly elevated with normal bilirubin, advised PMD followup. Otherwise unremarkable. No leukocytosis, glucose wnl. troponin neg. AJ score 0, low risk for cardiac event 01/07/19 22:[address] unremarkable Abd/Pelvis CT recommending further characterization of ovarian cyst with transvaginal ultrasound Pt asking for food, tolerated PO without difficulty. Reports improvement in chest burning and headache. 00:00 Patient anxious and mildly agitated with history of psychiatric illness. 1mg Ativan IV ordered. 00:40 Patient wishes to leave the ED before the result of her ultrasound. Will have patient sign out AMA. She will be called with any abnormal results. Advised OBGYN, PMD, and GI followup. Pt requested prescription for glucose test strips. The patient is choosing to leave against medical advice. I have personally explained to the patient that choosing to do so may result in permanent bodily harm, disability, or . I have discussed at great length that without further evaluation and monitoring there may be unforeseen circumstances and/or deterioration causing permanent bodily harm or as a result of their choice. The patient is alert, oriented, and shows the mental capacity to make cl ear decisions regarding the patients health care at this time. The patient continues to wish to leave against medical advice. In light of the patients decision to leave against medical advice, follow-up has been arranged and the patient is aware of the importance to following up as instructed. The patient has been advised that they should return to the emergency room immediately if they change their mind at any time, or if their condition begins to change or worsen in any way. - Lab Interpretations Lab Results: Urine Color Straw (YELLOW) 01/07/19 19:05 Urine Appearance Clear (CLEAR) 01/07/19 19:05 Urine pH 6.0 (4.7-8.0) 01/07/19 19:05 Ur Specific Luck 1.010 (1.005-1.035) 01/07/19 19:05 Urine Protein Negative mg/dL (<30 mg/dL) 01/07/19 19:05 Urine Glucose (UA) Negative mg/dL (NEGATIVE) 01/07/19 19:05 Urine Ketones Negative mg/dL (NEGATIVE) 01/07/19 19:05 Urine Blood Negative (NEGATIVE) 01/07/19 19:05 Urine Nitrate Negative (NEGATIVE) 01/07/19 19:05 Urine Bilirubin Negative (NEGATIVE) 01/07/19 19:05 Urine Urobilinogen 0.2 E.U./dL (<1 E.U./dL) 01/07/19 19:05 Ur Leukocyte Esterase Negative Ulisses/uL (NEGATIVE) 01/07/19 19:05 01/07/19 19:05 01/07/19 19:05 Lab Results 01/07/19 23:43: Troponin I < 0.01 01/07/19 21:00: Urine Opiates Screen Negative, Urine Methadone Screen Negative, Ur Barbiturates Screen Positive H, Ur Phencyclidine Scrn Negative, Ur Amphetamines Screen Negative, U Benzodiazepines Scrn Negative, U Oth Cocaine Metabols Negative, U Cannabinoids Screen Negative 01/07/19 19:05: Lipase 155 01/07/19 19:05: Sodium 137, Potassium 4.3, Chloride 99, Carbon Dioxide 27, Anion Gap 15, BUN 10, Creatinine 0.5 L, Est GFR ( Amer) > 60, Est GFR (Non-Af Amer) > 60, Random Glucose 101, Calcium 10.2, Magnesium 1.6 L, Total Bilirubin 0.3, AST 32, ALT 89 H, Alkaline Phosphatase 144 H D, Lactate Dehydrogenase 458, Total Creatine Kinase 52, Troponin I < 0.01, Total Protein 8.3, Albumin 4.6, Globulin 3.7, Albumin/Globulin Ratio 1.2 01/07/19 19:05: Urine Color Straw, Urine Appearance Clear, Urine pH 6.0, Ur Specific Luck 1.010, Urine Protein Negative, Urine Glucose (UA) Negative, Urine Ketones Negative, Urine Blood Negative, Urine Nitrate Negative, Urine Bilirubin Negative, Urine Urobilinogen 0.2, Ur Leukocyte Esterase Negative 01/07/19 19:05: PT 10.1, INR 0.91, APTT 33.7 01/07/19 19:05: WBC 9.3, RBC 4.76, Hgb 14.9, Hct 44.1, MCV 92.6, MCH 31.3, MCHC 33.8, RDW 12.9, Plt Count 339, MPV 10.6, Neut % (Auto) 61.2, Lymph % (Auto) 32.2, Crane % (Auto) 4.8, Eos % (Auto) 1.4 L, Baso % (Auto) 0.4, Lymph # (Auto) 3.0, Crane # (Auto) 0.5, Eos # (Auto) 0.1, Baso # (Auto) 0.04, Absolute Neuts (auto) 5.69 I have reviewed the lab results: Yes - RAD Interpretation Narrative RAD Interpretations (Text): 01/07/19 22:09 CT Abd/Pelvis: FINDINGS: LUNG BASES: The lung bases appear clear. No pleural effusions are seen. LIVER: Unremarkable. GALLBLADDER AND BILE DUCTS: Status post cholecystectomy. No biliary ductal dilatation is evident. PANCREAS: Unremarkable. SPLEEN: Unremarkable. ADRENAL GLANDS: Unremarkable. KIDNEYS, URETERS, AND BLADDER: The kidneys appear within normal limits. There is no hydronephrosis or hydroureter. No urinary calculi are seen. The urinary bladder appeared normal in size and configuration. STOMACH AND BOWEL: Unremarkable appearance of the stomach. No evidence of bowel obstruction. There is mild mucosal wall thickening of the ileal small intestinal tract which demonstrates fluid in its lumen thought compatible with ileitis. Infectious or inflammatory etiologies are thought most likely. No evidence suggesting colitis. APPENDIX: No evidence of acute appendicitis on CT examination. PERITONEUM: No free fluid. No free air. A small umbilical hernia is noted which contains fat. LYMPH NODES: No lymphadenopathy is evident. REPRODUCTIVE: In the right adnexal region there is demonstration of a 3.7 cm fluid density circumscribed mass compatible with a right ovarian cyst. Consideration could be given to correlation with TV pelvic ultrasound for further characterization. VASCULATURE: No evidence of abdominal aortic aneurysm. BONES: No aggressive appearing osseous lesion. No acute osseous pathology evident. IMPRESSION: 1. Evidence of ileitis. 2. Small umbilical hernia containing fat. 3. Status post cholecystectomy. 4. 3.7 cm right ovarian cyst. Consideration could be given to correlation with TV pelvic ultrasound for further characterization. Electronically signed on Jan 07, 2019 9:49:39 PM EDT by: Zac Griffiths M.D., MBA Certified By ABR & CBCCT Fellowship Trained MRI and CT Specialist Head CT: FINDINGS: BRAIN No acute intraparenchymal hemorrhage. No mass lesion. No CT evidence for acute territorial infarct. No midline shift or extra-axial collections. VENTRICLES: No hydrocephalus. ORBITS: The orbits are unremarkable. SINUSES AND MASTOIDS: The paranasal sinuses and mastoid air cells are clear. BONES: No fracture. SOFT TISSUES: Unremarkable. IMPRESSION: No acute intracranial abnormality. Electronically signed on Jan 07, 2019 9:44:20 PM EDT by: Zac Griffiths M.D., ALFREDITO Certified By ABR & CBCCT Fellowship Trained MRI and CT Specialist 01/08/19 00:54 Transvaginal US: Findings Uterus Measures 7.2 x 3.5 x 4.9 cm. Normal in size and appearance. No fibroid or ot her mass lesion seen. Endometrium Measures 0.85 mm in diameter. Unremarkable. Cervix Measures 3.9 cm. Nabothian cyst seen. Right ovary Measures 3.9 x 4.1 x 4.5 cm. No solid mass. Normal flow. Cyst measures 3.3 x 3.2 x 2.9 cm. Left ovary Measures 3.0 x 2.4 x 2.2 cm. No solid mass. Normal flow. Septated cyst 1.1 x 1.2 x 1.1 cm. Free fluid No significant free fluid noted. Other Findings None. Impression Nabothian cyst. Bilateral ovarian cysts. Electronically signed on Jan 08, 2019 12:50:06 AM EDT by: Zac Griffiths M.D., MBA Certified By ABR & CBCCT Fellowship Trained MRI and CT Specialist Radiology Orders: 01/07/19 18:34 ABD & PELVIS IV CONTRAST ONLY [CT] Stat HEAD W/O CONTRAST [CT] Stat Hazmat Cdl Driver: Radiologist - EKG Interpretation EKG Interpretation (Text): 01/07/19 19:22 Rate 79; NSR; Normal Intervals; No STEMI or other signs of acute ischemia Interpreted by ED Physician: Yes Type: 12 lead EKG - Medication Orders Current Medication Orders: Sodium Chloride (Sodium Chloride 0.9%) 1,000 mls @ 999 mls/hr IV .Q1H1M STA Stop: 01/07/19 19:34 Last Admin: 01/07/19 19:01 Dose: 999 mls/hr eMAR Start Stop Document 01/07/19 19:01 JULIAN ([facility]07[facility]19 [facility] Intravenous Solution Start Date 01/07/19 Start Time 19:02 End Date 01/07/19 End time 20:02 Total Infusion Time 60 Discontinued Medications Diphenhydramine HCl (Benadryl) 25 mg IVP STAT STA Stop: 01/07/19 18:36 Last Admin: 01/07/19 19:06 Dose: 25 mg IVP Administration Document 01/07/19 19:06 JULIAN (Rec: 01/07/19 19:06 [facility] Charges for Administration # of IVP Administrations 1 Ketorolac Tromethamine (Toradol) 15 mg IVP STAT STA Stop: 01/07/19 18:35 Last Admin: 01/07/19 19:06 Dose: 15 mg MAR Pain Assessment Document 01/07/19 19:06 JULIAN (Rec: 01/07/19 19:07 J[facility] Pain Reassessment Is this a pain reassessment? Yes Presence of Pain Presence of Pain Yes Pain Scale Used Protocol: PSCALES Pain Scale Used Numeric Location Pain Location Body Centerpuncher Description Description Constant Intensity of Pain at present 9 IVP Administration Document 01/07/19 19:06 JULIAN (Rec: 01/07/19 19:07 JULIAN [facility] Charges for Administration # of IVP Administrations 1 Disposition/Present on Arrival - Present on Arrival Any Indicators Present on Arrival: Yes History of DVT/PE: No History of Uncontrolled Diabetes: Yes Urinary Catheter: No History of Decub. Ulcer: No History Surgical Site Infection Following: None - Disposition Have Diagnosis and Disposition been Completed?: No Diagnosis: Headache, Abdominal pain, Left against medical advice, Ileitis Disposition: AGAINST MEDICAL ADVICE Disposition Time: 00:40 Condition: GUARDED Discharge Instructions (ExitCare): Headache, Adult, Acute Abdomen (Belly Pain), Adult (DC), Leaving Against Medical Advice Print Language: ITALIAN Prescriptions: Blood Sugar Diagnostic [Glucose Test Strip] 1 each Q12H #100 strip Referrals: Juan M Falcon MD [Medical Doctor] - Follow up with primary Moose Amaro MD [Staff Provider] - Follow up with primary Pancho Duncan MD [Staff Provider] - Follow up with primary Forms: [employer] (Nepali)
[2019-01-07 19:38] LABS: TROPONIN I < 0.01 ng/mL
[2019-01-07] MEDS ORDERED: Iohexol 350 MG/100 ML VIAL ONE (20:15)
[2019-01-07 20:40] VITALS: RESP 16
[2019-01-07 21:51] LABS: BENZODIAZEPINES, UR NEGATIVE (NEGATIVE)
[2019-01-07] MEDS ORDERED: Magnesium Oxide 400 mg Tab UD PO STA (22:08)
[2019-01-07 22:15] LABS: BARBITURATES, UR POSITIVE (NEGATIVE); OPIATES, UR NEGATIVE (NEGATIVE); PHENCYCLIDINE, UR NEGATIVE (NEGATIVE)
[2019-01-08 01:15] VITALS: BP 123/81; PULSE 72; O2SAT 100
--- NOTE | 2019-01-08 09:19 | CT ---
Date of service: 01/07/2019 PROCEDURE: CT Abdomen and Pelvis with contrast HISTORY: generalized abd pain, worst LLQ COMPARISON: None. TECHNIQUE: Intravenous contrast dose: 100 cc Omnipaque 350. Radiation dose: Total exam DLP = 807.13 mGy-cm. This CT exam was performed using one or more of the following dose reduction techniques: Automated exposure control, adjustment of the mA and/or kV according to patient size, and/or use of iterative reconstruction technique. FINDINGS: LOWER THORAX: Lingular atelectasis. LIVER: Hepatomegaly. Hepatic steatosis. No focal masses. No intrahepatic bile duct dilatation or perihepatic ascites. GALLBLADDER AND BILE DUCTS: Status post cholecystectomy. No abnormality is seen in the gallbladder fossa. PANCREAS: Unremarkable. No gross lesion or ductal dilatation. SPLEEN: Unremarkable. ADRENALS: Unremarkable. No mass. KIDNEYS AND URETERS: Unremarkable. No hydronephrosis. No solid mass. VASCULATURE: Unremarkable. No aortic aneurysm. No atherosclerotic calcification or mural plaque present. BOWEL: Unremarkable. No obstruction. No gross mural thickening. APPENDIX: Normal appendix. PERITONEUM: Unremarkable. No free fluid. No free air. LYMPH NODES: Unremarkable. No enlarged lymph nodes. BLADDER: Unremarkable. REPRODUCTIVE: Right adnexal cyst 3.6 x 3.9 cm. BONES: No acute fracture. OTHER FINDINGS: Small periumbilical hernia containing fat only. IMPRESSION: Right adnexal cyst 3.6 x 3.9 cm. Hepatomegaly/hepatic steatosis. No focal liver abnormalities. Additional benign and/or incidental findings described above. Concordant results (preliminary interpretation) provided by [email or web address]. Procedure Completed: 21:14. Preliminary Report: Interpreted and electronically signed: 21:49. Final Interpretation: 09:16. January 08, 2019.
--- NOTE | 2019-01-08 09:51 | CARD ---
APPROVED REPORT Date of service: 01/07/2019 EKG Measurement Heart [id number] FL [id number] <Conclusion> Normal sinus rhythm Normal ECG
--- NOTE | 2019-01-08 09:52 | CT ---
Date of service: 01/07/2019 PROCEDURE: CT HEAD WITHOUT CONTRAST. HISTORY: headache COMPARISON: None available. TECHNIQUE: Axial computed tomography images were obtained through the head/brain without intravenous contrast. Radiation dose: Total exam DLP = 1035.56 mGy-cm. This CT exam was performed using one or more of the following dose reduction techniques: Automated exposure control, adjustment of the mA and/or kV according to patient size, and/or use of iterative reconstruction technique. FINDINGS: HEMORRHAGE: No intracranial hemorrhage. BRAIN: No mass effect or edema. No atrophy or chronic microvascular ischemic changes. VENTRICLES: Unremarkable. No hydrocephalus. CALVARIUM: Unremarkable. PARANASAL SINUSES: Unremarkable as visualized. No significant inflammatory changes. MASTOID AIR CELLS: Unremarkable as visualized. No inflammatory changes. OTHER FINDINGS: The report concurs with the preliminary [facility] report IMPRESSION: No acute intracranial findings
--- NOTE | 2019-01-08 10:44 | US ---
Date of service: 01/07/2019 HISTORY: Abdominal pain. LMP December 17, 2018. COMPARISON: 3 prominent TECHNIQUE: Transvaginal only. Real -time technique with 2D, duplex and color Doppler FINDINGS: UTERUS: Measures 3.5 x 4.9 x 7.2 cm. Normal in size and appearance. No fibroid or other mass lesion seen. ENDOMETRIUM: Measures 8.5 mm in diameter. No ultrasound findings to suggest gestational sac, fluid, debris, mass or polyp or other pathologic process within the endometrium. CERVIX: No cervical abnormality identified.Incidental finding: Nabothian cysts the largest measures 1.2 x 0.9 cm. RIGHT OVARY: Measures 3.9 x 4.1 x 4.5 cm. No solid mass. Normal flow. Simple cyst 3.2 x 2.9 x 3.3 cm. This corresponds to findings on recent CT scan. LEFT OVARY: Measures 2.2 x 2.4 x 3.0 cm. No solid mass. Normal flow. Septated cyst 1.1 x 1.2 cm. FREE FLUID: No significant free fluid noted. OTHER FINDINGS: None. IMPRESSION: Bilateral adnexal cysts. Confirmation of findings identified on concurrent CT scan. Concordant findings (preliminary report) provided by JAIDA CHAMBERLAIN.
== END 2019-01-08 00:40 | disposition left against medical advice (07) ==
LOC: ED 17:25
DX: R51 Headache (principal); K52.9 Noninfective gastroenteritis and colitis, unspecified; I10 Essential (primary) hypertension; E11.9 Type 2 diabetes mellitus without complications
CPT/HCPCS: 70450; 74177; 76830; 80053; 80324; 80345; 80346; 80349; 80353; 80358; 80361; 81003; 81025; 82550; 83615; 83690; 83735; 83992; 84484; 85025; 85610; 85730; 93005; 96361; 96374; 96375; 96376; 99285; J1200; J1885; J2060; J2405; J7030; Q9967